=== PATIENT | male | born 1970 | race Caucasian/White ===

== ENCOUNTER 2017-02-09 15:38 | Emergency (ER) | payer OTHER ==
[~2017-02-09] VITALS: Ht 180.3 cm; Wt 100.0 kg
[2017-02-09 15:39] VITALS: BP 173/94; PULSE 84; RESP 15; TEMP 98.3; O2SAT 97
--- NOTE | 2017-02-09 15:45 | PD ---
Physical Exam Time Seen by Provider: 15:43 Narrative 46yo M sent by Dr. Kingston for L eye procedure. Reports blurred vision. Denies fever, vomiting. VS reviewed. Patient seen in triage. Awaiting bed placement. Data Data Last Documented VS Vital Signs Date Time Temp Pulse Resp B/P Pulse Ox O2 Delivery O2 Flow Rate FiO2 02/09/17 15:39 98.3 84 15 173/94 97 MDM Supervised Visit with TEOFILO: Blank Conde February 09, 2017 15:45
[2017-02-09] MEDS ORDERED: LISI-515 PO (15:54)
[2017-02-09] MEDS ORDERED: AMLO5TAB2 PO (15:54)
--- NOTE | 2017-02-09 16:04 | PD ---
HPI Chief Complaint: Eye Problems/Injury Time Seen by Provider: 15:51 Travel History International Travel<30 days: No Contact w/Intl Traveler<30days: No Traveled to known affect area: No History of Present Illness HPI 46-year-old male with a history of hypertension presents to the emergency department for evaluation of left eye pain, blurred vision and redness for 4 days. He states that this began after he received an injection from his eye doctor 5 days ago. 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 States that he saw his medical nurse Dr. Murillo this morning and was told to come to our emergency department where he would perform cultures and give him medication. The patient states he has a slight headache, pain in the left eye, redness and blurred vision in the left eye. Denies any fever, chills , nausea, vomiting, lightheadedness, dizziness. No other complaints. PFSH Past Medical History ?: Not Social History Tobacco Use: No Allergies-Medications (Allergen,Severity, Reaction): Coded Allergies: No Known Allergies (Unverified , 02/09/17) Reported Meds & Prescriptions Reported Meds & Active Scripts Active Reported Amlodipine (Amlodipine Besylate) 5 Mg Tab 5 Mg PO DAILY Lisinopril 20 Mg Tab 20 Mg PO DAILY Review of Systems Except as stated in HPI: all other systems reviewed are Neg Physical Exam Narrative GENERAL: Well-nourished and well-developed pleasant patient in no acute distress who is nontoxic appearing. SKIN: Warm and dry. HEAD: Normocephalic and atraumatic. EYES: Left eye with injection, left pupil is dilated, was done at medical nurse office. No hyphema noted. No drainage. Right is within normal limits. PERRLA. EOMI. ENT: No nasal drainage noted. Oropharynx is clear. NECK: Supple and the trachea is midline. CARDIOVASCULAR: Regular rate and rhythm. RESPIRATORY: Breath sounds are equal bilaterally with no accessory muscle use, wheezing, rhonchi, or crackles. GASTROINTESTINAL: Abdomen is soft, non-tender, and nondistended. MUSCULOSKELETAL: No obvious deformities, swelling, cyanosis, or ecchymosis is present throughout the upper and lower extremities. NEUROLOGICAL: Awake, alert, and oriented. Normal speech and gait. Cranial nerves are grossly intact. Data Data Last Documented VS Vital Signs Date Time Temp Pulse Resp B/P Pulse Ox O2 Delivery O2 Flow Rate FiO2 02/09/17 15:45 16 02/09/17 15:39 98.3 84 173/94 97 Orders Non-Formulary Drug (02/09/17 17:00) Non-Formulary Drug (02/09/17 17:00) MDM Medical Decision Making Medical Screen Exam Complete: Yes Emergency Medical Condition: Yes Differential Diagnosis Medication reaction versus eye pain versus infection versus other Narrative Course 46-year-old male presents to the emergency department for evaluation of left eye redness and pain after receiving an injection in his eye from his medical nurse 4 days ago. Patient is afebrile. He is slightly hypertensive with a blood pressure 173/94. Otherwise vital signs within normal limits. Physical examination does reveal his left eye is injected and his pupil is dilated, this was done at his medical nurse office earlier today. The medical nurse Dr. Murillo called ahead and will be coming to see his patient here in the emergency department to administer medications. Dr. Murillo came to the emergency department and administered intravitreous antibiotics and gave the patient prescriptions for ophthalmic steroids and antibiotics. Patient will follow-up with Dr. Murillo in the office. Diagnosis Primary Impression: Endophthalmitis Qualified Code: H44.002 - Endophthalmitis, left Referrals: Note Teller Disposition: DISCHARGE HOME Condition: Stable Blank Sahu February 09, 2017 16:04
[2017-02-09] MEDS ORDERED: [UNRECOGNIZED DRUG - OTHER] LEFT EYE ONE (17:00)
[2017-02-09] MEDS ORDERED: CEFTAZIDIME LEFT EYE ONE (17:00)
[2017-02-09] MEDS ORDERED: VANCOMYCIN 1 MG/0.1 ML LEFT EYE ONE (17:00)
[2017-02-09] MEDS ORDERED: [UNRECOGNIZED DRUG - OTHER] LEFT EYE ONE (17:00)
[2017-02-09 19:00] VITALS: BP 168/100
== END 2017-02-09 19:08 | disposition home or self-care (01) ==
LOC: NEPD 15:38 → NEPB 19:08
DX: H44.002 Unspecified purulent endophthalmitis, left eye (principal)
CPT/HCPCS: 87070; 87205; 99283